=== PATIENT | female | born 1970 | race Caucasian/White ===

== ENCOUNTER 2017-11-16 09:02 | Outpatient (CLI) | payer BC ==
--- NOTE | 2017-11-16 11:45 | RAD ---
4 VIEWS LEFT KNEE: Date: 11/16/17 INDICATION: Posterior left knee pain. FINDINGS: No acute fracture or subluxation is evident. No joint capsular distention is evident. There is mild o steoarthrosis of the left knee, predominantly involving the patellofemoral compartment. IMPRESSION: 1. No acute osseous abnormality. 2. Mild osteoarthrosis of the left knee, predominantly involving the patellofemoral compartment. POS: [facility]
== END 2017-11-16 09:03 | disposition home or self-care (01) ==
LOC: SCSRAD 09:02
PROVIDERS: ATTEND Family Medicine
DX: M25.562 Pain in left knee (principal); M17.12 Unilateral primary osteoarthritis, left knee

== ENCOUNTER 2018-11-08 09:52 | Outpatient (CLI) | payer BC ==
--- NOTE | 2018-11-18 15:11 | MMO ---
Bilateral MAMMO Bilat Screen [facility]. CLINICAL HISTORY: Patient is 48 years old and is seen for screening. The patient has no family history of breast cancer. The patient has no personal history of cancer. VIEWS: The views performed were: bilateral craniocaudal and bilateral mediolateral oblique. FILMS COMPARED: The present examination has been compared to prior imaging studies performed at [place], [place] on 11/21/2010 and 08/31/2015. This study has been interpreted with the assistance of computer-aided detection. MAMMOGRAM FINDINGS: The breasts are heterogeneously dense, which could obscure a lesion on mammography. There are stable benign appearing calcifications seen in both breasts. There are no suspicious masses, suspicious calcifications, or new areas of architectural distortion. IMPRESSION: THERE IS NO MAMMOGRAPHIC EVIDENCE OF MALIGNANCY. A ROUTINE FOLLOW-UP MAMMOGRAM IN 1 YEAR IS RECOMMENDED. ACR BI-RADS Category 2 - Benign finding MAMMOGRAPHY NOTE: 1. A negative mammogram report should not delay a biopsy if a dominant of clinically suspicious mass is present. 2. Approximately 10% to 15% of breast cancers are not detected by mammography. 3. Adenosis and dense breasts may obscure an underlying neoplasm.
== END 2018-11-08 09:53 | disposition home or self-care (01) ==
LOC: SCSMAMMO 09:52
PROVIDERS: ATTEND Family Medicine
DX: Z12.31 Encounter for screening mammogram for malignant neoplasm of breast (principal)
CPT/HCPCS: 77067